=== PATIENT | male | born 1975 | race Caucasian/White ===

== ENCOUNTER 2021-09-11 13:47 | Emergency (ER) | payer MEDICAID, OTHER ==
[~2021-09-11] VITALS: Ht 162.6 cm; Wt 87.1 kg
[~2021-09-11 13:47] MED LIST: METO5TAB3; OMEP40EC24 PO
[2021-09-11 13:54] VITALS: BP 179/109
--- NOTE | 2021-09-11 14:20 | NUR ---
PATIENT LEFT WITHOUT BEING SEEN BY DR. CARTER. NO FURTHER CARE PROVIDED FOR PATIENT.
== END 2021-09-11 14:20 | disposition left against medical advice (07) ==
LOC: MED 13:47
DX: B35.3 Tinea pedis (principal); Z53.21 Procedure and treatment not carried out due to patient leaving prior to being seen by health care provider